=== PATIENT | female | born 1990 | race Two or more races ===

== ENCOUNTER 2023-05-06 00:36 | Emergency (ER) | payer MEDICAID, OTHER ==
[~2023-05-06] VITALS: Ht 157.5 cm; Wt 90.7 kg
[2023-05-06] MEDS ORDERED: LACTATED RINGER'S 1,000 ML IV ONE (01:30)
[2023-05-06] MEDS ORDERED: ONDANSETRON HCL 4 MG/2 ML VIAL IV ONE (02:00)
[2023-05-06] MEDS ORDERED: LACTATED RINGER'S 500 ML IV ONE (03:10)
[2023-05-06] MEDS ORDERED: PREN-96 PO (03:21)
== END 2023-05-06 03:31 | disposition home or self-care (01) ==
LOC: ER 00:36 → LDRP 01:02 → UNDOADMOB 01:02 → LDRP 01:03 → UNDOADMOB 01:03 → UNDODISOB 03:31
PROVIDERS: ADMIT Obstetrics & Gynecology; ATTEND Obstetrics & Gynecology
DX: O26.893 Other specified pregnancy related conditions, third trimester (principal); R10.2 Pelvic and perineal pain; O26.853 Spotting complicating pregnancy, third trimester; Z3A.29 29 weeks gestation of pregnancy
CPT/HCPCS: 59025; 81002; 94760; 96360; 96361; 96374; G0378; J2405; J7120